=== PATIENT | female | born 1935 | race Caucasian/White ===

== ENCOUNTER → 2017-09-30 | Outpatient (CLI) | payer MEDICARE, BC ==
[~2017-09-30] MED LIST: AMBIEN 5 MG TABL5 M1 PO; ASPIRIN325 PO; LEVOTHYROXIN0.088 MG PO; TOPROL XL25 MG PO; TUMS PO; VITAMIN B-12500 MCG PO; VITAMIN D1000 UNI1 PO
--- NOTE | 2017-10-12 23:00 | ONC ---
[place] [address] RADIATION ONCOLOGY NOTE Name: ALTAGRACIA MAZA Room: [facility]#: [id number] Admission: 09/30/17 Attend Phys: Julien Brown MD Discharge: Date of : 37 Report #: [id number] THIS REPORT FOR: //name// CC: Julien Mcknight DATE OF SERVICE: 09/30/2017 REFERRING PHYSICIANS: Include Jose Del Castillo MD; Vinh Napoles MD; Dr. Gonzalez; Dr. Mcknight. [facility] phone is [phone]. PRIMARY SITE AND HISTOPATHOLOGY: The patient received definitive radiation therapy for a stage II, T2 N0 M0 nasal cavity cancer. She completed radiation treatments on 01/29/2015. INTERVAL NOTE: She eats a regular diet. She tries to have moist foods when she eats. She has had issues with a sinus infection and was on Augmentin recently. She had some clindamycin at home, so she started taking that since last Tuesday. She still has some pressure in the sinus areas. MEDICATIONS: Include Ambien; vitamin D; vitamin B12 and 75 mcg of levothyroxine, which is followed and prescribed by Dr. Del Castillo. She also takes supplemental potassium. SOCIAL HISTORY: She smoked about a half pack a day for about 20 years. She quit smoking in 1979. REVIEW OF SYSTEMS: RESPIRATORY: Breathing was baseline. She was not short of breath during her appointment. MUSCULOSKELETAL: She had good range of motion of her upper extremities. HEAD, EYES, EARS, NOSE AND THROAT: Visual acuity appeared intact. PHYSICAL EXAMINATION: VITAL SIGNS: The patient weighed 92.8 pounds on 09/30/2017, 91.6 pounds on 06/27/2017. On 09/30/2017 blood pressure was 126/63, pulse 63 and respirations 20. LYMPH NODES: The patient had no palpable cervical or supraclavicular lymphadenopathy. HEAD, EYES, EARS, NOSE AND THROAT: Right nasal cavity had no suspicious visible lesions. The left nasal cavity [place] [address] RADIATION ONCOLOGY NOTE Name: ALTAGRACIA MAZA Room: [facility]#: [id number] Admission: 09/30/17 Attend Phys: Julien Brown MD Discharge: Date of : 37 Report #: [id number] HEART: Had a regular rate and rhythm without murmur. LUNGS: were clear to auscultation. LABORATORY DATA: From 09/27/2017, creatinine was 0.6. RADIOLOGIC DATA: Neck and chest CT from 09/27/2017 revealed a slight increase in the size of several pleural based nodular opacities one which was new since the prior exam. These were nonspecific findings, they could be scarring or infectious inflammatory, a short term followup CT was recommended. There were unchanged mildly prominent right hilar nodes that were not enlarging. ASSESSMENT AND PLAN: 1. History of nasal cavity cancer- There is no evidence of nasal cavity cancer. Lab work and a neck and chest CT will be ordered in about 3 months and the patient will be asked to schedule a follow up appointment to see me afterwards. 2. Possible upper respiratory infection- The patient was changed over from clindamycin to Levaquin for 5 days. A followup chest CT as well as lab work was ordered in about 3 months and the patient was asked to schedule a follow up appointment to see me afterwards. 3. Hypothyroidism- The patient indicated that Dr. Del Castillo follows her thyroid functions and she takes 75 mcg of levothyroxine per day. 4. Dentition. The patient uses PreviDent fluoride gel for dental care. Thank you for allowing me to participate in the care of this patient. <ELECTRONICALLY SIGNED> By: Julien Brown MD 10/12/17 2300 1251 0100Julien Brown MD /nt
== END ==
LOC: M.RTH 01:45
DX: Z08 Encounter for follow-up examination after completed treatment for malignant neoplasm (principal); Z85.22 Personal history of malignant neoplasm of nasal cavities, middle ear, and accessory sinuses; E03.9 Hypothyroidism, unspecified

== ENCOUNTER → 2017-12-23 | Outpatient (CLI) | payer MEDICARE, BC ==
--- NOTE | 2018-01-02 00:15 | ONC ---
[place] [address] RADIATION ONCOLOGY NOTE Name: ALTAGRACIA MAZA Room: [facility]#: [id number] Admission: 12/23/17 Attend Phys: Julien Brown MD Discharge: Date of : 37 Report #: [id number] THIS REPORT FOR: //name// CC: Julien Del Castillo MD DATE OF SERVICE: 12/23/2017 REFERRING PHYSICIANS: Jose Del Castillo MD. Vinh Napoles MD. Dr. Gonzalez. Dr. Mcknight. Dr. Del Castillo is the primary care physician. [facility] phone is [phone]. PRIMARY SITE AND HISTOPATHOLOGY: The patient received definitive radiation therapy for a stage II, T2 N0 M0 nasal cavity cancer. She completed radiation treatments on 01/29/2015. INTERVAL NOTE: The patient continues to have persistent issues with dry mucus causing sinus discomfort. She is not short of breath. Her appetite is pretty much the same. In the past, she was given Levaquin for sinusitis, but she ended up being allergic to Levaquin and so that has been noted in her chart. She was seen by her ear, nose and throat physician, Dr. Napoles, who performed a balloon sinuplasty/dilators for her nasal cavity and she rinses her nasal cavity, but she still contends with dry mucus and that one also causes intermittent headaches as well. MEDICATIONS: Include Ambien, vitamin D, vitamin B12, 75 mcg of levothyroxine that is followed and prescribed by Dr. Del Castillo. She also takes supplemental potassium. SOCIAL HISTORY: She smoked about a half pack a day of cigarettes for a day for about 20 years. She quit smoking around 1979. REVIEW OF SYSTEMS: RESPIRATORY: Breathing was baseline. She was not short of breath during her appointment. MUSCULOSKELETAL: She had good range of motion of her upper extremities. HEAD, EYE, EAR, NOSE AND THROAT EXAM: Visual acuity is intact. PHYSICAL EXAMINATION: VITAL SIGNS: The patient weighed 92.8 pounds on 12/23/2017 and 92.8 pounds on 09/30/2017, then on 12/23/2017 blood pressure was 152/65, pulse 62, respir[place] 20[place] [address] RADIATION ONCOLOGY NOTE Name: ALTAGRACIA MAZA Room: [facility]#: [id number] Admission: 12/23/17 Attend Phys: Julien Brown MD Discharge: Date of : 37 Report #: [id number] LYMPH NODES: The patient had no palpable cervical or supraclavicular lymphadenopathy. HEAD, EYES, EARS, NOSE, AND THROAT EXAMINATION: Right nasal cavity had no suspicious visible lesions. Left nasal cavity had no visible lesions. HEART: Had a regular rate and rhythm without murmur. LUNGS: were clear to auscultation. LABORATORY DATA: From 12/21/2017, creatinine was 0.7. RADIOLOGIC DATA: She had a neck and chest CT on 12/21/2017 showed no cervical mass or lymphadenopathy. She does have mild mucosal thickening around the right frontal sinus as well as the ethmoid and maxillary sinus consistent with sinusitis. Chest, it has continued increase in size of several pleural based nodular opacities in the lower lobe of the right lung along the right major fissure and given the continued increase in size, it was suspicious for metastatic disease. They suggested a followup CT in about 3 months. ASSESSMENT AND PLAN: 1. History of nasal cavity cancer-There is no evidence of nasal cavity cancer locally. She was asked to schedule a followup appointment to see me in about 3-4 weeks. 2. Lung nodules-This could either be metastatic head and neck cancer to the lung versus primary lung cancer with multiple nodules versus some other etiology causing these increasing nodule, so she will be referred for a PET/CT scan and then follow up with her medical oncologist, Dr. Robbins, or her colleagues and then follow up with me afterwards. 3. Hypothyroidism- The patient indicated that Dr. Del Castillo follows her thyroid functions. She takes about 75 mcg of levothyroxine per day. 4. Dentition- The patient uses PreviDent fluoride gel for dental care. Thank you for allowing me to participate in the care of this patient. <ELECTRONICALLY SIGNED> By: Julien Brown MD 01/02/18 0015 1514 [id number] Brown MD /nt
== END ==
LOC: M.RTH 01:37
DX: E03.9 Hypothyroidism, unspecified (principal); K00.7 Teething syndrome; R91.1 Solitary pulmonary nodule; Z85.22 Personal history of malignant neoplasm of nasal cavities, middle ear, and accessory sinuses

== ENCOUNTER → 2018-10-23 | Outpatient (CLI) | payer MEDICARE, BC ==
[~2018-10-23] MED LIST changes: +ASPIR 8181 MG PO; +ATIVAN0.5 MG PO; +FENTANYL PATCH75 MCG TRANSDERM; +LASIX 20 MG TAB20 MG PO; -LEVOTHYROXIN0.088 MG PO; +MS CONTIN15 MG PO; +MSL20MG/ML SUBLING; +ONDANSETRON HCL4 M2 PO; +OXYCODONE HCL15 MG PO; +POTASSIUM20 PO; +PREDNISONE 5 MG5 M1 PO; +PROTONIX40 M1 PO; +SPIRONOLACTONE50 MG PO; +Synthroid 0.088 MG PO; +TRAMADOL 50 MG50 MG PO; +TRANSDERM-SCOP1 EACH TRANSDERM
[2018-10-23 14:57] LABS: ABSOLUTE EOSINOPHILS 0.1 thou/uL (0.0-0.7); ABSOLUTE LYMPHOCYTES 0.5 thou/uL (0.8-5.3); ABSOLUTE MONOCYTES 0.6 thou/uL (0.0-1.2); BASOPHILS 0.6 %; EOSINOPHILS 1.5 %; HEMATOCRIT 22.8 % (37.0-47.0); HEMOGLOBIN 7.5 gm/dL (12.0-15.0); LYMPHOCYTES 11.1 %; MCH 33.5 pg (26.0-34.0); MCV 101.6 fL (80.0-100.0); MONOCYTES 14.7 %; MPV 6.7 fl. (7.2-11.1); NUCLEATED RBCS 0 /100WBC; PLATELET COUNT* 322 thou/uL (150-400); POLYS 72.1 %; RBC 2.25 mil/uL (4.20-5.00); RDW-CV 15.7 % (10.5-14.5); WBC 4.2 thou/uL (4.0-11.0)
[2018-10-23 15:10] LABS: ALBUMIN 2.9 g/dL (3.4-5.0); CALCIUM 8.7 mg/dL (8.5-10.1); CREATININE 0.8 mg/dL (0.6-1.3); DIRECT BILIRUBIN 0.1 mg/dL (<0.1-0.3); POTASSIUM 3.8 mmol/L (3.5-5.1); TOTAL BILIRUBIN 0.5 mg/dL (<0.1-1.0); TOTAL PROTEIN 6.9 g/dL (6.4-8.2)
== END ==
LOC: M.RAD 14:35
PROVIDERS: Physician Assistant
DX: R10.9 Unspecified abdominal pain (principal); R97.8 Other abnormal tumor markers

== ENCOUNTER 2018-10-25 12:47 | Inpatient (IN) | payer MEDICARE, BC ==
[~2018-10-25] VITALS: Ht 157.5 cm; Wt 44.5 kg
[~2018-10-25 12:47] MED LIST changes: -ASPIR 8181 MG PO; -ATIVAN0.5 MG PO; -FENTANYL PATCH75 MCG TRANSDERM; -LASIX 20 MG TAB20 MG PO; -MS CONTIN15 MG PO; -MSL20MG/ML SUBLING; -ONDANSETRON HCL4 M2 PO; -OXYCODONE HCL15 MG PO; -POTASSIUM20 PO; -PREDNISONE 5 MG5 M1 PO; -PROTONIX40 M1 PO; -SPIRONOLACTONE50 MG PO; -TRAMADOL 50 MG50 MG PO; -TRANSDERM-SCOP1 EACH TRANSDERM
[2018-10-25 13:02] VITALS: BP 121/40
[2018-10-25] MEDS ORDERED: ASPIR 8181 MG PO (13:12)
[2018-10-25] MEDS ORDERED: LASIX 20 MG TAB20 MG PO (13:13)
[2018-10-25 13:52] LABS: ABSOLUTE EOSINOPHILS 0.1 thou/uL (0.0-0.7); ABSOLUTE LYMPHOCYTES 0.4 thou/uL (0.8-5.3); ABSOLUTE MONOCYTES 0.5 thou/uL (0.0-1.2); ABSOLUTE NEUTROPHILS 2.5 thou/uL (1.6-8.1); BASOPHILS 0.8 %; EOSINOPHILS 2.3 %; HEMATOCRIT 21.2 % (37.0-47.0); LYMPHOCYTES 11.5 %; MCH 33.4 pg (26.0-34.0); MCHC 32.7 g/dL (28.0-37.0); MCV 102.2 fL (80.0-100.0); MONOCYTES 14.6 %; MPV 7.6 fl. (7.2-11.1); NUCLEATED RBCS 0 /100WBC; PLATELET COUNT* 307 thou/uL (150-400); POLYS 70.8 %; RBC 2.07 mil/uL (4.20-5.00); WBC 3.6 thou/uL (4.0-11.0)
[2018-10-25 13:56] LABS: URINE BILIRUBIN NEGATIVE (Negative); URINE BLOOD NEGATIVE (Negative); URINE CLARITY CLEAR; URINE COLOR YELLOW; URINE GLUCOSE-RANDOM NEGATIVE (Negative); URINE KETONES NEGATIVE (Negative); URINE LEUKOCYTES-REFLEX NEGATIVE (Negative); URINE NITRITE-REFLEX NEGATIVE (Negative); URINE PROTEIN NEGATIVE (Negative); URINE SPECIFIC GRAVITY <= 1.005 (1.005-1.030); URINE UROBILINOGEN 0.2 E.U./dl (0.2-1.0)
[2018-10-25 13:58] LABS: HEMOGLOBIN 6.9 gm/dL (12.0-15.0)
[2018-10-25 14:33] LABS: ALBUMIN 2.7 g/dL (3.4-5.0); ALKALINE PHOSPHATASE 85 U/L (46-116); ANION GAP 10 mmol/L (7-16); BUN 13 mg/dL (7-18); CALCIUM 8.5 mg/dL (8.5-10.1); CHLORIDE 97 mmol/L (98-107); CO2 24 mmol/L (21-32); CREATININE 0.9 mg/dL (0.6-1.3); GLUCOSE 95 mg/dL (70-99); LIPASE 253 U/L (73-393); POTASSIUM 3.5 mmol/L (3.5-5.1); SGOT 29 U/L (15-37); SGPT 15 U/L (30-65); SODIUM 131 mmol/L (136-145); TOTAL BILIRUBIN 0.3 mg/dL (<0.1-1.0); TOTAL PROTEIN 6.6 g/dL (6.4-8.2); TROPONIN-I LEVEL <0.06 ng/mL (<0.06)
[2018-10-25 15:01] LABS: APTT 28.5 Seconds (25.0-31.3); PROTIME 10.5 Seconds (9.20-11.50)
--- NOTE | 2018-10-25 16:47 | EKG ---
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 : 1935 Requested By: Camila Aguilar Order Number: [id number] MD: Juvenal Browning Measurements Intervals [place] Rate: 61 P: 86 DC: 167 QRS: 63 QRSD: 89 T: 87 QT: 445 QTc: 449 Interpretive Statements Sinus rhythm Nonspecific repolarization abnormalities Baseline wander in lead(s) V4 No previous ECG available for comparison Electronically Signed On 10-25-2018 16:46:55 WORK ORDER SORTING CLERK by Juvenal Browning [email or web address] <ELECTRONICALLY SIGNED> By: Juvenal Browning MD, [facility] 10/25/18 1646 134 134 Juvenal Browning MD, FAC /EPI
[2018-10-25 17:39] VITALS: BP 99/46
[2018-10-25 17:59] LABS: % SATURATION 8 % (20-39); IRON 22 ug/dL (50-175)
[2018-10-25 18:03] VITALS: BP 113/46
[2018-10-25 18:25] VITALS: BP 100/47; BP 106/38; BP 114/48; BP 116/50
[2018-10-25 20:00] VITALS: BP 100/47
[2018-10-25 23:16] LABS: HEMATOCRIT 24.8 % (37.0-47.0); HEMOGLOBIN 8.3 gm/dL (12.0-15.0)
[2018-10-26 04:22] VITALS: BP 109/54
[2018-10-26 04:39] LABS: HEMATOCRIT 23.2 % (37.0-47.0); HEMOGLOBIN 7.6 gm/dL (12.0-15.0); MCH 32.8 pg (26.0-34.0); MCHC 32.9 g/dL (28.0-37.0); MCV 99.5 fL (80.0-100.0); RBC 2.33 mil/uL (4.20-5.00); WBC 3.4 thou/uL (4.0-11.0)
[2018-10-26 04:45] LABS: CALCIUM 7.8 mg/dL (8.5-10.1); CREATININE 0.7 mg/dL (0.6-1.3); MAGNESIUM 1.9 mg/dL (1.8-2.4); POTASSIUM 3.3 mmol/L (3.5-5.1)
[2018-10-26 08:30] VITALS: BP 106/60
[2018-10-26 11:00] VITALS: BP 114/55
[2018-10-26 16:42] LABS: BF RBC 1337 /mm3; TOTAL CELL COUNT 208 /mm3
[2018-10-26 16:59] LABS: TOTAL VOLUME 20 ml
[2018-10-26 17:00] LABS: CLARITY SLIGHTLY HAZY
[2018-10-26 17:03] VITALS: BP 131/56
[2018-10-26 17:03] LABS: SOURCE ABDOMINAL
[2018-10-26 17:10] LABS: BF LYMPHOCYTES 79 %; BF MONOCYTES 4 %; BF POLYS 17 %; BF TISSUE 8 /100 WBC
[2018-10-26 20:00] VITALS: BP 122/47
[2018-10-27] VITALS (23 sets, daily range): BP systolic 98–139; BP diastolic 46–74
[2018-10-27 04:34] LABS: CALCIUM 8.7 mg/dL (8.5-10.1); CREATININE 0.8 mg/dL (0.6-1.3); MAGNESIUM 2.6 mg/dL (1.8-2.4); POTASSIUM 3.7 mmol/L (3.5-5.1)
[2018-10-27 08:08] LABS: BODY FLUID LDH 37 IU/L (())
[2018-10-28] VITALS: BP 117/54
[2018-10-28 04:00] VITALS: BP 106/61
--- NOTE | 2018-10-28 09:57 | CON ---
[address] [address] CONSULTATION Name: ALTAGRACIA MAZA Room: [address] IN .R.#: [id number] Admission: 10/25/18 Attend Phys: Sadnoval Leung MD Discharge: Date of : 37 Report #: [id number] THIS REPORT FOR: //name// CC: Julien Del Castillo DATE OF SERVICE: 10/26/2018 ADDENDUM. REFERRING PHYSICIAN: Dr. Garcia. Dr. Sandoval Leung. Addendum to job #[id number]. I have seen and examined the patient and reviewed all of her records from [facility] and her hospital stay at [facility]. A total of 60 minutes was spent by both myself and by our nurse practitioner, Dr. Qing Barrientos, to evaluate this patient. In addition, the patient was recently seen in the office, and I have reviewed those records as well. HISTORY OF PRESENT ILLNESS: The patient is a pleasant 83-year-old white female, survivor of nasal cancer, for which she underwent surgery for the same, followed by radiation therapy for the same. She has been followed regularly by the oncologist at [facility] and has known about a spot within her lung, which has been relatively stable. However, she started having problem with abdominal pain and distention and developed apparently obstructive jaundice. She underwent extensive evaluation at [facility] on the [place] including an endoscopic ultrasound plus an ERCP with findings of distal to mid common bile duct stricture with evidence for a mass at the level of case hepatis, which was also compressing the portal vein. Unfortunately, between biopsies of the biliary tree and fluid, there is no firm diagnosis of malignancy. Overall, the findings are compatible with the same. Her fluid has been compatible with portal hypertensive ascites, which she has been on diuretics for the same. She was admitted to the hospital now with complaints of progressive abdominal pain and distention and inability to breathe secondary to the same. She was found to be constipated, but also had a large amount of ascites. She underwent an ultrasound-guided paracentesis today, followed by placement of a PleurX catheter for palliation and is currently in the process of trying to figure out what she wants to do with regards to her cancer. She was seen in consultation by Dr. Grier who recommend a CT-guided biopsy of a lung mass and this is likely the last [place] [address] CONSULTATION Name: ALTAGRACIA MAZA Room: [address] IN M.R.#: [id number] Admission: 10/25/18 Attend Phys: Sandoval Leung MD Discharge: Date of : 37 Report #: [id number] In discussing this with the patient, she is looking for quality of life versus quantity of life and will likely pursue palliative if not hospice care. If it were my mother, I would pursue hospice care. I think that anything would be done to her would be very difficult for her to tolerate, and it would not add a whole lot of time to her existence at this time. At the present time, the only recommendation we have with regards to her constipation would begin on stimulant laxatives such as Senokot or Dulcolax, keep her bowels moving well. She has pain medications for her cancer. We will be available at this point in time, but I have no plans for any endoscopic studies. I do not feel that if she decides she wants to pursue a repeat endoscopic ultrasound with Dr. López, this is certainly an option for her, but at this point, I do not see the point in pursuing this. My partner will see her tomorrow, Dr. Barber, and follow her thereafter if necessary. I have discussed those with the patient as well as her sons and at the bedside. <ELECTRONICALLY SIGNED> By: Eliot Greco DO 10/28/18 0957 1839 [id number] Greco DO /nt
--- NOTE | 2018-10-28 09:57 | CON ---
[address] [address] CONSULTATION Name: ALTAGRACIA MAZA Room: [address] IN .R.#: [id number] Admission: 10/25/18 Attend Phys: Sandoval eLung MD Discharge: Date of : 37 Report #: [id number] THIS REPORT FOR: //name// CC: Dr. Marvel Del Castillo MD DICTATED BY: Qing Barrientos [facility] DATE OF SERVICE: 10/26/2018 Please note at the time of this dictation, the patient was seen and physically examined by myself. REASON FOR CONSULTATION: Abdominal pain. HISTORY OF PRESENT ILLNESS: This is a pleasant 83-year-old female who came to the Emergency Room with worsening of her abdominal distention and bloating and increased shortness of breath. The patient was seen on Tuesday in our office by ARLINE Broussard and Dr. Barber with recommendations. They wanted to know why she had this case hepaticus mass that they wanted biopsy and she has been set up on 11/07/[address] López to undergo an ERCP EUS at that time. Apparently, she saw Dr. Grier the following day and she states over those past 4 days, she has gained 11 pounds in her abdomen and also in her lower extremities. In attempting to get a history from the patient, she is a very poor historian in regards to her date and time what I can gather. The patient has also mentioned that she had melanotic stools for about 3 weeks that she noted dark stool, but it is improved over the last several days. She did undergo an EGD and colonoscopy in June at [facility] and was told everything was normal and there was nothing wrong with her. She then underwent an ERCP with Dr. Nicolas at [facility] in which a stent was placed at that time. Apparently about a month ago, she also had fluid drained as well. The patient does have a history of nasal cell carcinoma in 2016 in which she was treated as well. ALLERGIES: CODEINE, CEPHALEXIN. MEDICATIONS: From home include aspirin, Lasix, Synthroid, Ambien, Tums, vitamin D, and vitamin B12. PAST MEDICAL HISTORY: Hypothyroidism, cancer on her right face, nasal cell carcinoma. PAST SURGICAL HISTORY: She has had a left arthroscopy, [place] [address] CONSULTATION Name: ALTAGRACIA MAZA Room: [address] IN [facility]#: [id number] Admission: 10/25/18 Attend Phys: Sandoval Leung MD Discharge: Date of : 37 Report #: [id number] FAMILY HISTORY: Noncontributory. SOCIAL HISTORY: Denies any alcohol, tobacco or illegal drug use. REVIEW OF SYSTEMS: Twelve-point review of systems is essentially negative except what is mentioned in the HPI. PHYSICAL EXAMINATION: VITAL SIGNS: Temperature 36.7, pulse 70, respirations 16, blood pressure 106/60. HEART: Regular rate and rhythm. CHEST: Lungs are diminished. ABDOMEN: Very distended, diffuse tenderness and hard. Lower extremity edema noted bilaterally as well. LABORATORY DATA: Hemoglobin 7.6, hematocrit 23.2, white count 3.4, platelets 271. GFR is 80. PT is 10.5. INR is 1. Total bilirubin 0.3, alkaline phosphatase 85, ALT 15, AST is 29. PT 10.5. INR is 1. Haptoglobin is 220. Ferritin 29. Iron 22, TIBC 286. Percentage sat is 8, B12 is 2517. 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 IMPRESSION: 1. Abdominal pain, worsening. 2. Anemia. History of melanotic stools, has resolved. 3. Ascites. 4. Peritoneal carcinomatosis. 5. Pancreatic ductal dilatation all noted on CT findings. 6. Weight gain. 7. History of nasal cell carcinoma. PLAN: 1. We will await Dr. Grier's recommendation after paracentesis and likely biopsy. 2. Discussions underway regarding palliative and hospice care. 3. We will be on standby [place] [address] CONSULTATION Name: ALTAGRACIA MAZA Room: [address] IN [facility].#: [id number] Admission: 10/25/18 Attend Phys: Sandoval Leung MD Discharge: Date of : 37 Report #: [id number] Thank you for allowing us to participate in this patient's care. Please do not hesitate to call with any questions regarding care. <ELECTRONICALLY SIGNED> By: Eliot Greco DO 10/28/18 0957 1214 0336Eliot Greco DO /nt
[2018-10-28] MEDS ORDERED: OXYCODONE HCL15 MG PO (13:04)
[2018-10-28] MEDS ORDERED: MS CONTIN15 MG PO (13:04)
[2018-10-28 13:12] VITALS: BP 106/61
[2018-10-28] MEDS ORDERED: TRAMADOL 50 MG50 MG PO (15:50)
[2018-10-29 16:12] LABS: SOURCE ABDOMINAL FLUID
== END 2018-10-28 17:25 | disposition home or self-care (01) | DRG 377 ==
LOC: M.ERS 12:47 → M.TBA-ER 16:23 → M.3W 16:23
PROVIDERS: Physician Assistant; ADMIT Internal Medicine
PROC: 30233N1 Transfusion of Nonautologous Red Blood Cells into Peripheral Vein, Percutaneous Approach (ICD-10-PCS; principal; 2018-10-25)
PROC: 0W9G30Z Drainage of Peritoneal Cavity with Drainage Device, Percutaneous Approach (ICD-10-PCS; 2018-10-26)
PROC: 0BBJ3ZX Excision of Left Lower Lung Lobe, Percutaneous Approach, Diagnostic (ICD-10-PCS; 2018-10-27)
DX: K92.2 Gastrointestinal hemorrhage, unspecified (principal); E43 Unspecified severe protein-calorie malnutrition; D62 Acute posthemorrhagic anemia; C78.6 Secondary malignant neoplasm of retroperitoneum and peritoneum; C80.0 Disseminated malignant neoplasm, unspecified; R18.8 Other ascites; Z68.1 Body mass index [BMI] 19.9 or less, adult; E03.9 Hypothyroidism, unspecified; K59.00 Constipation, unspecified; E61.1 Iron deficiency; Z88.6 Allergy status to analgesic agent; Z88.8 Allergy status to other drugs, medicaments and biological substances; Z87.891 Personal history of nicotine dependence; Z79.82 Long term (current) use of aspirin; Z79.899 Other long term (current) drug therapy

== ENCOUNTER 2018-11-12 12:41 | Inpatient (IN) | payer MEDICARE, BC ==
[~2018-11-12] VITALS: Ht 160 cm; Wt 33.1 kg
--- NOTE | ~2018-11-12 | CON ---
[address] [address] CONSULTATION Name: ALTAGRACIA MAZA Room: [address] IN .R.#: [id number] Admission: 11/12/18 Attend Phys: Sandoval Leung MD Discharge: Date of : 37 Report #: [id number] THIS REPORT FOR: //name// CC: Sandoval POWER MD DICTATED BY: Qing Barrientos [facility] DATE OF SERVICE: 11/13/2018 Please note at the time of this dictation, the patient was seen and physically examined by myself. REASON FOR CONSULTATION: PleurX catheter issues. HISTORY OF PRESENT ILLNESS: This is an 83-year-old female who was recently seen by us in consultation in the end of September for her ascitic fluid in which she had a PleurX catheter placed at that time by Interventional Radiology. When she was dismissed at that time she was transitioning from palliative care to hospice care. The patient has a longstanding history of metastatic malignancy with pleural and peritoneal carcinomatosis in which the drain was placed for that purpose. Dr. Mallory, the radiologist that placed the catheter on 10/26/2018 states that it is in good position and review on feels that there was only minimal fluid remaining in the abdomen and that the distention is from marked ileus and gas filled small and large bowel. He felt at that time repositioning of the tube would not help. The patient was scheduled for an EUS, ERCP later this week with Dr. López which will be canceled given the status of the patient who is too weak and has now elected to go on palliative hospice care. The patient was just given Reglan as well as some MiraLax and Dulcolax tablets to see about getting her bowels started. Her bowel sounds have been very hypoactive. She has not been passing any flatulence and her last bowel movement was on Tuesday. She is on chronic narcotics at home to help with all of this. Prior to coming in she said her drain was emptying out anywhere from 400-1800 mL a day and they had not noticed any drainage in the last 48 hours. ALLERGIES: Include KEFLEX, CODEINE AND MORPHINE. MEDICATIONS From home: Vitamin, aspirin, Lasix, Ultram, Zofran, prednisone, K-Dur, spironolactone, Ambien, Tums and vitamin D. PAST MEDICAL HISTORY: Lower extremity edema. She has lung mass, which are likely metastatic from her pleural and peritoneal carcinomatosis, history of hypothyroidism, skin cancer on her face. She also was noted to have a biliary pancreatic mass [place] [address] CONSULTATION Name: ALTAGRACIA MAZA Room: [address] IN .R.#: [id number] Admission: 11/12/18 Attend Phys: Sandoval Leung MD Discharge: Date of : 37 Report #: [id number] PAST SURGICAL HISTORY: Left knee, tubes in her tear ducts. FAMILY HISTORY: Noncontributory. SOCIAL HISTORY: Lives with her , has good family support. REVIEW OF SYSTEMS: Twelve-point review of systems is essentially negative except what is mentioned in the HPI. PHYSICAL EXAMINATION: VITAL SIGNS: Temperature 36.7, pulse 76, respirations 18, blood pressure 114/51. HEART: Regular rate and rhythm. LUNGS: Diminished. ABDOMEN: Positive bowel sounds with some generalized tenderness noted throughout. LABORATORY DATA: Sodium 121, potassium is 5.4. Hemoglobin is 10.5, white count 9.1, platelets 412. GFR is 53. CT of the abdomen and pelvis showed some right hydronephrosis, significant changes in the biliary, moderate biliary ductal dilatation, cavernous transformation of thrombus main portal vein noted. Also noted on CT small and large bowel distention, likely an ileus. IMPRESSION: 1. Abdominal pain. 2. Ileus. 3. Hyponatremia. 4. 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 PLAN: 1. Reglan on board. 2. Laxatives have been started. 3. May consider Dulcolax suppositories if no results. 4. We will cancel her ERCP, EUS later this week. 5. is discussing hospice care. Thank you for allowing us to participate in this patient's care. Please do not hesitate to call with any questions in regard to this consult. By: 1144 [id number] Barber MD /nt
[~2018-11-12 12:41] MED LIST changes: +ASPIR 8181 MG PO; +LASIX 20 MG TAB20 MG PO; +MS CONTIN15 MG PO; +OXYCODONE HCL15 MG PO; +TRAMADOL 50 MG50 MG PO
[2018-11-12 12:50] VITALS: BP 124/67
[2018-11-12] MEDS ORDERED: ONDANSETRON HCL4 M2 PO (13:04)
[2018-11-12] MEDS ORDERED: PREDNISONE 5 MG5 M1 PO (13:04)
[2018-11-12] MEDS ORDERED: SPIRONOLACTONE50 MG PO (13:05)
[2018-11-12] MEDS ORDERED: POTASSIUM20 PO (13:05)
[2018-11-12 14:09] LABS: MCH 30.9 pg (26.0-34.0); MCHC 32.1 g/dL (28.0-37.0); MCV 96.1 fL (80.0-100.0); MPV 6.6 fl. (7.2-11.1); NUCLEATED RBCS 0 /100WBC; PLATELET COUNT* 210 thou/uL (150-400); RBC 1.65 mil/uL (4.20-5.00); RDW-CV 15.2 % (10.5-14.5); WBC 4.8 thou/uL (4.0-11.0)
[2018-11-12 14:20] LABS: HEMATOCRIT 15.9 % (37.0-47.0); HEMOGLOBIN 5.1 gm/dL (12.0-15.0)
[2018-11-12 14:55] LABS: ALBUMIN 0.6 g/dL (3.4-5.0); ALKALINE PHOSPHATASE 30 U/L (46-116); BUN 7 mg/dL (7-18); CHLORIDE 120 mmol/L (98-107); CREATININE 0.3 mg/dL (0.6-1.3); GLUCOSE 46 mg/dL (70-99); LIPASE 43 U/L (73-393); NT-PRO BRAIN NAT PEPTIDE 123 pg/mL (<300); SGOT 8 U/L (15-37); SGPT < 6 U/L (30-65); SODIUM 143 mmol/L (136-145); TOTAL BILIRUBIN 0.1 mg/dL (<0.1-1.0); TOTAL PROTEIN 2.1 g/dL (6.4-8.2); TROPONIN-I LEVEL <0.06 ng/mL (<0.06)
[2018-11-12 14:56] LABS: ANION GAP 13 mmol/L (7-16)
[2018-11-12 15:00] LABS: ABSOLUTE LYMPHOCYTES 0.1 thou/uL (0.8-5.3); ABSOLUTE MONOCYTES 0.1 thou/uL (0.0-1.2); ABSOLUTE NEUTROPHILS 4.5 thou/uL (1.6-8.1); CALCIUM < 5.0 mg/dL (8.5-10.1); CO2 10 mmol/L (21-32)
[2018-11-12 15:01] LABS: ANISOCYTOSIS 1+; OVALOCYTES Occasional; PLATELET ESTIMATE ADEQUATE
[2018-11-12 15:02] LABS: HYPOCHROMASIA Occasional
[2018-11-12 15:12] LABS: HEMATOCRIT 31.6 % (37.0-47.0)
[2018-11-12 15:14] LABS: HEMOGLOBIN 10.3 gm/dL (12.0-15.0)
[2018-11-12 15:43] LABS: HEMATOCRIT 30.6 % (37.0-47.0); HEMOGLOBIN 10.2 gm/dL (12.0-15.0); MCH 31.3 pg (26.0-34.0); MCHC 33.3 g/dL (28.0-37.0); MCV 93.9 fL (80.0-100.0); MPV 6.8 fl. (7.2-11.1); NUCLEATED RBCS 0 /100WBC; RBC 3.26 mil/uL (4.20-5.00); RDW-CV 15.9 % (10.5-14.5); WBC 9.1 thou/uL (4.0-11.0)
[2018-11-12 15:45] LABS: PLATELET COUNT* 412 thou/uL (150-400)
[2018-11-12 16:03] LABS: ALBUMIN 1.9 g/dL (3.4-5.0); CREATININE 0.9 mg/dL (0.6-1.3); TOTAL BILIRUBIN 0.5 mg/dL (<0.1-1.0); TOTAL PROTEIN 6.1 g/dL (6.4-8.2)
[2018-11-12 16:08] LABS: CALCIUM 8.1 mg/dL (8.5-10.1); POTASSIUM 5.4 mmol/L (3.5-5.1)
[2018-11-12 16:30] LABS: URINE BILIRUBIN NEGATIVE (Negative); URINE BLOOD NEGATIVE (Negative); URINE CLARITY CLEAR; URINE COLOR YELLOW; URINE GLUCOSE-RANDOM NEGATIVE (Negative); URINE KETONES NEGATIVE (Negative); URINE LEUKOCYTES-REFLEX NEGATIVE (Negative); URINE NITRITE-REFLEX NEGATIVE (Negative); URINE PROTEIN NEGATIVE (Negative); URINE SPECIFIC GRAVITY <= 1.005 (1.005-1.030); URINE UROBILINOGEN 0.2 E.U./dl (0.2-1.0)
[2018-11-12 16:39] LABS: ABSOLUTE EOSINOPHILS 0.2 thou/uL (0.0-0.7); ABSOLUTE LYMPHOCYTES 0.2 thou/uL (0.8-5.3); ABSOLUTE MONOCYTES 0.6 thou/uL (0.0-1.2); ABSOLUTE NEUTROPHILS 8.1 thou/uL (1.6-8.1)
[2018-11-12 16:40] LABS: ANISOCYTOSIS 1+; OVALOCYTES Occasional; PLATELET ESTIMATE INCREASED
[2018-11-12 16:43] LABS: LARGE PLATELETS RARE
[2018-11-12 17:30] VITALS: BP 116/58
[2018-11-12 18:00] VITALS: BP 121/89
[2018-11-12 19:40] VITALS: BP 121/56
--- NOTE | 2018-11-12 19:43 | NUR ---
PT ARRIVED TO ROOM 229 AT APPROX 1755, PT A/O X4, C/O PAIN IN THE ENTIRE ABDOMEN, PT ALSO C/O NAUSEA. PT STATES SHE HAS HAD NO APITITE RECENTLY. PT GIVEN FENTANYL 50 MCG, PT STILL C/O PAIN, SPOKE TO DR. ACOSTA, RECIEVED ORDERS TO INCREASE THE DOSE AND TO ORDER DILAUDID, CHECKED WITH PHARMACY TO MAKE SURE DILAUDID OK TO GIVE PT. PT AND FAMILY SPOKE TO DR ACOSTA AT LENGTH ABOUT CODE STATUS, PT MADE DNR. PT RESTING IN BED, REPORT GIVEN TO JULIO C CORRIGAN
[2018-11-12 21:08] LABS: CALCIUM 8.8 mg/dL (8.5-10.1); CREATININE 0.9 mg/dL (0.6-1.3); POTASSIUM 5.8 mmol/L (3.5-5.1)
[2018-11-12 23:47] VITALS: BP 108/46
[2018-11-13 03:42] VITALS: BP 117/58
--- NOTE | 2018-11-13 04:48 | NUR ---
END SHIFT: PT RESTED WELL. IV PAIN MEDICATION TAKING PTS PAIN TO TOLERABLE LEVEL BELOW A 4. IVF INFUSING WITHOUT DIFFICUTLY. FAMILY IN ROOM AND AT BEDSIDE AND VERY INVOLVED WITH CARE. TOLERATING CLEAR LIQUIDS WITHOUT VOMITING. ABD SOFT BUT VERY TENDER TO PALPATION. PLEUREX DRAIN IN PLACE ON RIGHT LOWER ABD. SAFETY PRECAUTIONS IN PLACE. CALL LIGHT IN REACH. WCTM
[2018-11-13 05:33] LABS: CALCIUM 8.1 mg/dL (8.5-10.1); MAGNESIUM 1.7 mg/dL (1.8-2.4); POTASSIUM 5.4 mmol/L (3.5-5.1)
[2018-11-13 08:00] VITALS: BP 114/51
[2018-11-13 12:00] VITALS: BP 107/65
--- NOTE | 2018-11-13 13:40 | NUR ---
MET WITH PT, MARGAR/KILEY AND S/O PETERSON TO DISCUSS HOME SITATUION/DC PLANNING. PT LIVES WITH PETERSON, HE HAS PROVIDING HER CARE AT HOME SINCE HER DC 10/28. HE HAS MANAGED HER DRAIN AND ASSISTED WITH ADLS. PT IS FOLLOWED AT HOME BY [facility]/NENITA [employer]KER. PETERSON HAD RECEIVED CALL FROM NENITA WHILE CM IN ROOM. CM ALSO SPOKE WITH NENITA, [facility] WAS IN THE PROCESS OF SWITCHING PT OVER TO HOSPICE AND HAD AN OUTSIDE ORDER FROM DR DODD. DR ACOSTA MADE AWARE. PT'S PAIN IS CURRENTLY OUT OF CONTROL. PER DR ACOSTA, WILL REASSESS AND MAKE RECOMMENDATIONS AT LATER TIME, WORKING ON PAIN CONTROL NOW. UDPATED PT'S DTR/KILEY. MANY FAMILY MEMBERS HERE THIS AFTERNOON. EMOTIONAL SUPPORT PROVIDED. WILL FOLLOW
[2018-11-13 16:00] VITALS: BP 98/44
--- NOTE | 2018-11-13 16:00 | NUR ---
ASSUMED CARE OF PATIENT THIS AM AT 0730. PATIENT IS ALERT AND ORIENTED X 4. SHE C/O SEVERE ABDOMINAL PAIN. ADB IS DISTENDED, FIRM WITH HYPOACTIVE BOWEL SOUNDS. PATIENT WAS GIVEN FENTANYL X 1. SHE SAID THAT SHE WAS NOT GETTING ANY RELIEF FROM THE FENTANYL. PATIENT STARTED ON IV DILAUDID. PATIENT NOW SAYS THAT HER PAIN IS CONTROLLED. PATIENT IS SLEEPING NOW. TELE SHOWS CONTINUED SR. BLADDER SCAN DONE. PATIENT HAD ABOUT 550 ML. PATIENT ASSISTED TO TURN Q 2 HR. FAMILY IS IN AT THE BEDSIDE THROUGHOUT THE DAY. WILL CONTINUE TO MONITOR COMFORT AND SAFETY.
--- NOTE | 2018-11-13 17:38 | EKG ---
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
[2018-11-13 19:52] VITALS: BP 94/50
--- NOTE | 2018-11-14 05:19 | NUR ---
PATIENT WAS VERY LETHARGIC AND DIFFICULT TO AROUSE AT THE BEGINNING OF SHIFT AT 1930. WHEN ASKED, PHAM (SON) STATED THAT PATIENT ONLY VOIDED ONCE IN THE PRIOR SHIFT. BLADDER SCAN OBTAINED, 580 CC NOTED. FAMILY AGREEABLE TO RODRIGUEZ CATHETER INSERTION. CATHETER INSERTED FOR COMFORT AND RETENTION. DARK YELLOW URINE OUTPUT NOTED. UNTIL AROUND 2230, NUMEROUS FAMILY MEMBERS AT BEDSIDE WITH PATIENT AND PRAYING WITH HER. FAMILY MEMBERS TEARFUL AND WORRIED. ASSURANCE GIVEN THAT PATIENT WILL BE KEPT COMFORTABLE FOR THE NIGHT. ALL FAMILY BUT THE SON LEFT FOR THE NIGHT. SON HAS BEEN AT THE BEDSIDE. PATIENT WOKE UP AND WAS VERY VERBAL AT AROUND 2330. PATIENT STATED SHE NEEDED TO HAVE A BOWEL MOVEMENT. PATIENT ASSISTED TO BEDSIDE COMMODE. SMALL LOOSE BOWEL MOVEMENT, YELLOW BROWN COLOR. AFTER AMBULATION AND TRANSFER, PATIENT WAS EXPERIENCING ALOT OF PAIN. IV MEDICATION ADMINISTERED PER MAR WITH RELIEF. PATIENT RESTING COMFORTABLY, EVEN DURING REPOSITIONING. CALL LIGHT WITHIN REACH.
[2018-11-14 08:59] VITALS: BP 94/44
--- NOTE | 2018-11-14 11:31 | NUR ---
CONTINUE TO FOLLOW, MET WITH PT, DTR/KILEY, JYOTI AND PT'S BROTHER AND ROGER. PT ALERT AND TALKATIVE THIS AM, DTR STATES SHE ATE BREAKFAST. FAMILY VOICED CONCERN ABOUT INFO FROM HOSPICE YESTERDAY AND 'CONFUSION' SURROUNDING THE HOSPICE VISIT. OFFERED SUPPORT AND ASSURED THEM THAT CM WOULD ASSIST WITH GETTING CORRECT INFO TODAY WELL UPDATE PHYSICIAN. DTR STILL FEELING LIKE HOME IS NOT THE BEST PLAN FOR PT. DID BRIEFLY DISCUSS POSSIBLE OPTIONS IF THEY DECIDE ON HOSPICE IE: HOSPICE GIP SHORT TERM, AT HOME, IN FACILITY OR HOSPICE HOUSE. JYOTI WAS FAMILIAR WITH HOSPICE HOUSE. DTR CONTINUING TO VOICE FRUSTRATION WITH INCORRECT INFO. SPOKE WITH [facility]OVER/ARABELLA VANEGAS. SHE PLANS TO COME OVER TO MEET WITH PT/FAMILY TODAY TO CLEAR UP ANY CONFUSION RE: GIP AND HOSPICE.
--- NOTE | 2018-11-14 12:10 | NUR ---
CLOVER FROM [facility] HERE, MET WITH PT/DTR/DIL AND SO WITH CM TO DISCUSS EVENTS OF YESTERDAY WITH HOSPICE VISIT AND CLEAR UP CONCERNS RE: GIP. PER CLOVER, PT DOESN'T QUALIFY AT THIS TIME FOR GIP. FAMILY UNDERSTOOD. SERVICE RECOVERY DONE.
[2018-11-14 16:00] VITALS: BP 100/43
--- NOTE | 2018-11-14 16:28 | NUR ---
ASSUMED CARE OF PT AROUND 0730 THIS AM. REFER TO ASSESSMENT. PT HAVING CONSULTS WITH HOSPICE COMPANIES TO GO HOSPICE/COMFORT CARE. FAMILY REQUESTING COMFORT MEASURES AT THIS TIME. PLEUREX CATHETER ACCESSED THIS SHIFT AND DRAINING LIGHT GREEN, PURULENT FLUID. ABOUT 1300ML REMOVED AT THIS TIME. FAMILY AT BEDSIDE. GIVEN PRN IV DILAUDID ONCE THIS SHIFT AT THIS TIME FOR PAIN. WCTM. CLWR.
--- NOTE | 2018-11-14 16:31 | NUR ---
UPDATED PT'S SON PHAM. [facility] HERE MEETING WITH PT/FAMILY PER LAWANDA/NADYA BAIRD, THEY CAN ACCEPT PT AND HAVE A PRIVATE ROOM LONG HER MEDS ARE NOT IV PER LISET/DIXIE CALLEJAS, SHE IS STILL CHECKING ON ROOM AND COST. TOLD SON THAT CM WILL F/U TOMORROW AM RE: FINAL PLANS FOR DC
--- NOTE | 2018-11-14 16:42 | CON ---
[address] [address] CONSULTATION Name: ALTAGRACIA MAZA Room: [address] IN .R.#: [id number] Admission: 11/12/18 Attend Phys: Sandoval Leung MD Discharge: Date of : 39 Report #: [id number] THIS REPORT FOR: //name// CC: Sandoval Grier DATE OF SERVICE: 11/13/2018 REQUESTING PHYSICIAN: Sandoval Leung M.D. REASON FOR CONSULTATION: Hyponatremia. HISTORY OF PRESENT ILLNESS: The patient is a very unfortunate 83-year-old female with medical history significant for advanced cancer. 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 She was seen by ____; apparently, she has advanced cancer and she is not a candidate for any chemotherapy She has recurrent ascites. She had drain in her peritoneal cavity and apparently boyfriend was draining several liters every day, drain stopped working 2 days ago. The patient has not been eating and drinking for several days. She lost 70 pounds of her weight. Her sodium was low and I was consulted. PAST MEDICAL HISTORY: As I mentioned earlier. SOCIAL HISTORY: No tobacco or alcohol abuse. FAMILY HISTORY: Noncontributory. REVIEW OF SYSTEMS: The patient is not communicating, is very weak. PHYSICAL EXAMINATION: VITAL SIGNS: The patient is an extremely thin lady due to malnutrition due to cancer. HEENT: Oral mucosa dry. LUNGS: Decreased air movements. CARDIOVASCULAR: Regular rate. ABDOMEN: Distended. LABORATORY DATA: Serum sodium is 121. ASSESSMENT: Metastatic cancer. The patient has reached her end-stage. RECOMMENDATION: My recommendation would be to stop fluids, stop lab draws to make sure she is receiving pain medication in addition to comfort care. I discussed with her son and daughter. They both agree with the plan[place] [address] CONSULTATION Name: ALTAGRACIA MAZA Room: [address]#: [id number] Admission: 11/12/18 Attend Phys: Sandoval Leung MD Discharge: Date of : 39 Report #: [id number] Thank you very much. <ELECTRONICALLY SIGNED> By: Orlando Brian MD 11/14/18 1642 1539 [id number] Brian MD /JAYLENE
[2018-11-14 19:44] VITALS: BP 97/38
[2018-11-15] VITALS: BP 116/51
--- NOTE | 2018-11-15 01:48 | NUR ---
FAMILY HAS REQUESTED THAT PATIENT BE KEPT COMFORTABLE AND NOT REPOSITIONED OR BOTHERED THROUGHOUT THE NIGHT. PATIENT WAS SITTING UP AND DRINKING ENSURE WHILE TALKING WITH FAMILY AT THE BEGINNING OF SHIFT. PATIENT WAS HOLDING ABDOMEN AND REPORTING DISCOMFORT BUT NOT ABLE TO RATE PAIN. HAS BEEN GIVEN ONE DOSE OF PAIN MEDICATION AND IS NOW SLEEPING. SON, PHAM, AT BEDSIDE. PERITONEAL DRAIN IN PLACE, DRAINING ADEQUATELY WITH CLOUDY YELLOW OUTPUT. RODRIGUEZ IN PLACE. CALL LIGHT WITHIN REACH
--- NOTE | 2018-11-15 09:10 | NUR ---
SPOKE WITH PT'S SON/PHAM THIS AM. THE FAMILY WAS PLEASED WITH [facility] VISIT BUT HAVE DECIDED NOW THAT THEY PREFER EITHER [facility], [facility] OR [facility]. LEFT VMAIL WITH [facility], NITESH IS FULL. [facility] HAS A [facility] PRIVATE PAY ROOM, FAXED REFERRAL. UPDATED SON. HE VOICED THAT FAMILY IS DEALING WITH INCREASED STRESS THIS AM PT'S S/O PETERSON FELL LAST NIGHT AND HAD SURGERY AND IS HOSPITALIZED NOW ALSO.
[2018-11-15] MEDS ORDERED: FENTANYL PATCH75 MCG TRANSDERM (11:55)
[2018-11-15] MEDS ORDERED: MSL20MG/ML SUBLING (11:55)
[2018-11-15] MEDS ORDERED: TRANSDERM-SCOP1 EACH TRANSDERM (11:56)
[2018-11-15] MEDS ORDERED: AMBIEN 5 MG TABL5 M1 PO (11:56)
[2018-11-15] MEDS ORDERED: PROTONIX40 M1 PO (11:57)
[2018-11-15] MEDS ORDERED: ATIVAN0.5 MG PO (11:57)
[2018-11-15 12:00] VITALS: BP 102/45
--- NOTE | 2018-11-15 15:13 | NUR ---
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
--- NOTE | 2018-11-15 15:39 | NUR ---
BA FROM [facility] HERE AND YUDI'Delfina PT. PT STABLE AT THIS TIME. BA TO ARRANGE FOR MEDS TO BE DELIVERED TO [facility] AND TO HAVE NURSE THERE BY 6PM AG. SPOKE WITH [facility]/ADMISSIONS. THEY WILL ACCEPT AND ASKED THAT DTR COME BY TO DO PAPERWORK PRIOR TO THAT. CALL TO ESTEBAN/RIGOBERTO, SHE AND HER MOM WILL GO BY [facility] TO TAKE CARE OF PAPERS. AWARE AMBULANCE SET UP FOR 545PM. SHE WILL CONVEY TO PT'S DTR/KILEY AND SON/PHAM WHO WENT HOME TO REST. FAMILY IN ROOM UPDATED AND MADE AWARE THAT PT'S NURSE GERTRUDE WOULD ASSESS FOR ANY CHANGE IN CONDITION PRIOR TO TRANSPORT. ORDERS FAXED TO [facility]. 4 SCRIPTS GIVEN TO BA/[facility] TO GET FILLED. CHART COPIED THU [facility] CALLED AND SET UP FOR AMBULANCE TRANSPORT AT 545PM, COPY OF DNR IN AMBULANCE FORMS
[2018-11-15 15:57] VITALS: BP 102/45
== END 2018-11-15 18:00 | DRG 919 ==
LOC: M.ERS 12:41 → M.TBA-ER 16:39 → M.2W 16:39
PROVIDERS: Nurse Practitioner Family; ADMIT Internal Medicine
DX: T85.618A Breakdown (mechanical) of other specified internal prosthetic devices, implants and grafts, initial encounter (principal); K83.1 Obstruction of bile duct; E43 Unspecified severe protein-calorie malnutrition; K56.7 Ileus, unspecified; E87.1 Hypo-osmolality and hyponatremia; R18.0 Malignant ascites; Z68.1 Body mass index [BMI] 19.9 or less, adult; C78.2 Secondary malignant neoplasm of pleura; C78.6 Secondary malignant neoplasm of retroperitoneum and peritoneum; Z51.5 Encounter for palliative care; Z66 Do not resuscitate; E86.9 Volume depletion, unspecified; E03.9 Hypothyroidism, unspecified; Y83.8 Other surgical procedures as the cause of abnormal reaction of the patient, or of later complication, without mention of misadventure at the time of the procedure; Y92.89 Other specified places as the place of occurrence of the external cause; Z85.828 Personal history of other malignant neoplasm of skin; Z87.891 Personal history of nicotine dependence; Z79.82 Long term (current) use of aspirin; Z79.899 Other long term (current) drug therapy; Z88.5 Allergy status to narcotic agent; Z88.8 Allergy status to other drugs, medicaments and biological substances